=== PATIENT | male | born 1950 | race Caucasian/White ===

== ENCOUNTER → 2017-12-28 | Outpatient (CLI) | payer MEDICARE ==
--- NOTE | 2018-01-02 07:18 | US ---
EXAM DESCRIPTION: Carotid Duplex CLINICAL HISTORY: 67 years, Male, OCCLUSION AND STENOSIS OF BILATERAL CAROTID ARTERIES COMPARISON: [None.] FINDINGS: Indirect estimation of percent stenosis is inferred from velocity parameters and cross referenced to published or self-generated correlations among velocity parameters. Peak systolic velocity right common carotid artery 112 centimeters/second. Peak systolic velocity right internal carotid artery 101 centimeters/second. Right ICA to CCA ratio 0.9. Antegrade flow in the right vertebral artery. Grayscale images show a small amount of plaque in the right carotid bifurcation. Peak systolic velocity left common carotid artery 126 centimeters/second. Peak systolic velocity left internal carotid artery 71 centimeters/second. Left ICA to CCA ratio 0.6. [Antegrade] flow in the left vertebral artery. Grayscale images show a small amount of plaque in the left carotid bifurcation. IMPRESSION: Mild (less than 50%) bilateral carotid artery stenosis. Electronically signed by: Morgan Wick MD 01/02/2018 7:17 AM FINISH CLEANER
== END ==
LOC: US 14:30
PROVIDERS: ATTEND Family Medicine
DX: I65.23 Occlusion and stenosis of bilateral carotid arteries (principal)

== ENCOUNTER 2019-06-13 23:22 | Emergency (ER) | payer MEDICARE ==
[2019-06-13] MEDS ORDERED: KETOROLAC TROMETHAMINE INJ 60 MG/2 ML VIAL IM ONE (23:32)
[2019-06-13] MEDS ORDERED: PROMETHAZINE HCL INJ 25 MG/ML VIAL IM ONE (23:32)
--- NOTE | 2019-06-14 00:03 | RAD ---
EXAM DESCRIPTION: KUB CLINICAL HISTORY: 69 years Male acute left lower abd pain COMPARISON: None TECHNIQUE: Supine view of the abdomen was obtained. FINDINGS: Gas is seen throughout the bowel. Bowel is normal in caliber. Moderate constipation. Faint calcification versus overlying stool in region of inferior right kidney. Pelvic calcifications likely vascular in nature. IMPRESSION: Nonspecific bowel gas pattern. Moderate constipation. No definite bowel obstruction. Electronically signed by: Rachana Hanson MD 06/14/2019 12:00 AM CDT
--- NOTE | 2019-06-14 00:33 | CT ---
CT abdomen and pelvis without contrast on 06/14/2019 CLINICAL INDICATION: Left lower quadrant pain, hematuria TECHNIQUE: Multiple axial images are obtained throughout the abdomen and pelvis without the administration of contrast. This exam was performed according to our departmental dose-optimization program, which includes automated exposure control, adjustment of the mA and/or kV according to patient size and/or use of iterative reconstruction technique. Total DLP is 1407.22 mGy*cm. COMPARISON: 01/05/2013 FINDINGS: Abdomen: Very mild bilateral gynecomastia is noted. Coronary artery calcifications and other vascular calcifications are noted. There is calcified pleural plaque on the left suggesting prior hemothorax or empyema. Lung bases are otherwise clear. There is a nonobstructing stone in the lower pole of the right kidney. There is mild left hydronephrosis and hydroureter to the level of a 4 mm left UVJ stone. There is mild left perinephric and periureteral stranding related to the obstruction. There is a small left adrenal nodule that has Hounsfield unit measurement of -6 which is consistent with an adenoma with no follow-up recommended. The unenhanced solid abdominal organs are otherwise unremarkable. There is no abdominal adenopathy. There is no free fluid or free air within the abdomen. There is diverticulosis. The abdominal portion of the GI tract is otherwise unremarkable. Pelvis: There is diverticulosis. There is no free fluid in the pelvis. The prostate is mildly enlarged, please correlate with physical exam and PSA levels. There is no pelvic adenopathy. The pelvic portion of the GI tract including the appendix is otherwise unremarkable. Degenerative changes are noted in the spine. There is a small right inguinal hernia containing only fat. IMPRESSION: 1. Mild left hydronephrosis and hydroureter to the level of a 4 mm left UVJ stone. 2. Right nephrolithiasis. 3. Diverticulosis. 4. Mild prostate enlargement. Electronically signed by: Juan Adame 06/14/2019 12:31 AM CDT
[2019-06-14] MEDS ORDERED: TAMSULOSIN 0.4 MG CAP PO ONE (00:50)
--- NOTE | 2019-06-14 00:53 | ED.PDOC ---
History of Present Illness - General Chief Complaint: Abdominal Pain Stated Complaint: Severe left sided pain Time Seen by Provider: 06/13/19 23:23 Source: patient Exam Limitations: no limitations - History of Present Illness Initial Comments: the patient is a 69-year-old male presenting to emergency room secondary to acute onset left lower abdominal pain. It was associated with nausea and sweating. No diarrhea. No testicular pain. No urinary symptoms. No previous history of any kidney stones. He was feeling fine prior. Pain is quite severe. It is cramping and stabbing in nature. Timing/Duration: 1-3 hours Severity: severe Improving Factors: nothing Worsening Factors: nothing Associated Symptoms: malaise, nausea/vomiting Allergies/Adverse Reactions: Allergies NO KNOWN ALLERGY Allergy (Verified 06/13/19 23:30) Home Medications: Ambulatory Orders Primidone 250 mg PO BID 06/13/19 Tramadol HCl 50 mg PO Q8HR PRN #10 tab 06/14/19 Review of Systems - Review of Systems Constitutional: States: no symptoms reported EENTM: States: no symptoms reported Respiratory: States: no symptoms reported Cardiology: States: no symptoms reported Gastrointestinal/Abdominal: States: see HPI Genitourinary: States: no symptoms reported Musculoskeletal: States: back pain Skin: States: no symptoms reported Neurological: States: no symptoms reported Endocrine: States: no symptoms reported All other Systems: No Change from Baseline Past Medical History (General) - Patient Medical History Hx Seizures: No Hx Stroke: No Hx Dementia: No Hx Asthma: No Hx of COPD: No Hx Cardiac Disorders: No Hx Congestive Heart Failure: No Hx Pacemaker: No Hx Hypertension: No Hx Thyroid Disease: No Hx Diabetes: No Hx Gastroesophageal Reflux: No Hx Renal Disease: No Hx Cancer: No Hx of HIV: No Hx Hepatitis C: No Hx MRSA: No Surgical History: other - Vaccination History Hx Tetanus, Diphtheria Vaccination: - Unknown Hx Influenza Vaccination: Yes Hx Pneumococcal Vaccination: Yes - Social History Hx Tobacco Use: No Hx Chewing Tobacco Use: No Hx Alcohol Use: Yes - occasional Hx Substance Use: No Hx Substance Use Treatment: No Hx Depression: No Feels Threatened In Home Enviroment: No Feels Threatened In a Relationship: No Hx Physical Abuse: No Hx Emotional Abuse: No Hx Suspected Abuse: No - Activities of Daily Living Hospice Agency (if applicable):: None - Triage Comment ED Triage Comment: Pt states that he began having severe left sided pain that was sudden onset about three hours ago. Pt states that he is now beginning to feel nauseated. Family Medical History - Family History Brother Living Status: Still Living Hx Family Cancer: Yes - melanoma Father Living Status: Hx Cardiac Disease: Yes Physical Exam - Physical Exam General Appearance: Alert, Obvious distress Eye Exam: bilateral normal Ears, Nose, Throat: hearing grossly normal, normal ENT inspection Neck: full range of motion, supple Respiratory: lungs clear, normal breath sounds, no respiratory distress, no accessory muscle use Cardiovascular/Chest: normal peripheral pulses, regular rate, rhythm, no edema Peripheral Pulses: radial,right: 2+, radial,left: 2+, dorsalis pedis,right: 2+, dorsalis pedis,left: 2+ Gastrointestinal/Abdominal: non tender, soft Rectal Exam: deferred Back Exam: no CVA tenderness, no vertebral tenderness Extremity: normal range of motion, non-tender, normal inspection, no pedal edema - , normal capillary refill 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 Based on his symptom resolution and it is likely that he has already passed into the bladder. He should increase his fluid intake over the coming week. He did receive 1 dose of Flomax here. He can take Motrin or Aleve twice daily for the next few days as well to reduce discomfort. ER warnings were given for any acute worsening. Stone was confirmed by CT scan. - Results/Orders Results/Orders: Laboratory Results - last 24 hr 06/13/19 23:49 Urine Color Yellow Urine Appearance Clear Urine pH 5.5 Ur Specific [place] >= 1.030 Urine Protein Negative Urine Glucose (UA) Negative Urine Ketones Negative Urine Blood Small H Urine Nitrite Negative Urine Bilirubin Negative Urine Urobilinogen 0.2 Ur Leukocyte Esterase Negative Urine RBC 3-5 H Urine WBC 1-3 Ur Epithelial Cells 0 Urine Bacteria 0 - EKG/XRAY/CT CT Ordered: No CT Interpretation Call Back: No Departure - Departure Clinical Impression: Ureterolithiasis Disposition: Discharge to Home or Self Care Condition: Fair Departure Forms: ED Discharge - Pt. Copy, Patient Portal Self Enrollment Instructions: Kidney Stones (DC) Diet: regular diet Activity: increase activity as tolerated Referrals: Cody Torres MD [Primary Care Provider] - 1-2 Weeks Prescriptions: Tramadol HCl 50 mg PO Q8HR PRN #10 tab PRN Reason: Moderate Pain Home Medications: Ambulatory Orders Primidone 250 mg PO BID 06/13/19 Tramadol HCl 50 mg PO Q8HR PRN #10 tab 06/14/19 Additional Instructions: the patient's a 69-year-old male presenting to the emergency room secondary to pain from what appears to be due to a 4 mm kidney stone at the left ureterovesicular junction. Based on his symptom resolution and it is likely that he has already passed into the bladder. He should increase his fluid intake over the coming week. He did receive 1 dose of Flomax here. He can take Motrin or Aleve twice daily for the next few days as well to reduce discomfort. ER warnings were given for any acute worsening. Stone was confirmed by CT scan.
[2019-06-14 01:05] VITALS: BP 135/93; TEMP 97.2; O2SAT 95
== END 2019-06-14 01:02 | disposition home or self-care (01) ==
LOC: ER 23:22
DX: N13.2 Hydronephrosis with renal and ureteral calculous obstruction (principal)
CPT/HCPCS: 74018; 74176; 81001; J1885; J2550

== ENCOUNTER → 2019-07-17 | Outpatient (CLI) | payer MEDICARE | LOC: GMAE 10:50 | PROVIDERS: ATTEND Family Medicine | DX: E78.5 Hyperlipidemia, unspecified (principal); Z79.899 Other long term (current) drug therapy; Z12.5 Encounter for screening for malignant neoplasm of prostate | CPT/HCPCS: 84443; G0103 ==

== ENCOUNTER 2020-01-09 09:06 | Emergency (ER) | payer MEDICARE ==
[2020-01-09] MEDS ORDERED: KETOROLAC TROMETHAMINE INJ 30 MG/ML VIAL ONE (09:37)
[2020-01-09] MEDS: SODIUM CHLORIDE 0.9% 1000ML 1,000 ML IVS ONE (09:44)
[2020-01-09] MEDS: ONDANSETRON INJ 4 MG/2 ML VIAL IV ONE (09:44)
[2020-01-09] MEDS: KETOROLAC TROMETHAMINE INJ 30 MG/ML VIAL IV ONE ×2 (09:44→11:27)
--- NOTE | 2020-01-09 09:44 | ED.PDOC ---
History of Present Illness - General Chief Complaint: Abdominal Pain Stated Complaint: R flank discomfort Time Seen by Provider: 01/09/20 09:26 - History of Present Illness Initial Comments: 69 yo M PMH Kidney Stones presents to ED at bedside c/o right sided flank pain that radiates to RLQ of abdomen with nausea that began this morning. Denies fever chills admits nausea denies vomiting diarrhea chest pain sob diaphoresis. Admits decreased appetie and disturbed rest. Also reports dysuria and sensation to urinate but not feeling ability of full urination no change in bowel. Denies smoking admits occasional drinking. Admits FH HTN denies FH DM. Has PMD Dr. Kessler. No other c/o today. Review of Systems - Review of Systems Constitutional: States: see HPI EENTM: States: see HPI Respiratory: States: see HPI Cardiology: States: see HPI Gastrointestinal/Abdominal: States: see HPI Genitourinary: States: see HPI Musculoskeletal: States: see HPI Skin: States: see HPI Neurological: States: see HPI Endocrine: States: see HPI Hematologic/Lymphatic: States: see HPI All other Systems: Reviewed and Negative Past Medical History (General) - Patient Medical History Hx Seizures: No Hx Stroke: No Hx Dementia: No Hx Asthma: No Hx of COPD: No Hx Cardiac Disorders: No Hx Congestive Heart Failure: No Hx Pacemaker: No Hx Hypertension: No Hx Thyroid Disease: No Hx Diabetes: No Hx Gastroesophageal Reflux: No Hx Renal Disease: No Hx Cancer: No Hx of HIV: No Hx Hepatitis C: No Hx MRSA: No - Vaccination History Hx Tetanus, Diphtheria Vaccination: - Unknown Hx Influenza Vaccination: Yes - 2019 Hx Pneumococcal Vaccination: Yes - Social History Hx Tobacco Use: No Hx Chewing Tobacco Use: No Hx Alcohol Use: Yes - Occasional Hx Substance Use: No Hx Substance Use Treatment: No Hx Depression: No Hx Physical Abuse: No Hx Emotional Abuse: No Hx Suspected Abuse: No Family Medical History - Family History Brother Living Status: Still Living Hx Family Cancer: Yes - melanoma Father Living Status: Hx Cardiac Disease: Yes Physical Exam - Physical Exam General Appearance: Obvious distress Eyes, Ears, Nose, Throat Exam: normal ENT inspection Neck: non-tender, full range of motion Respiratory: normal breath sounds, no respiratory distress Cardiovascular/Chest: regular rate, rhythm Gastrointestinal/Abdominal: soft, tenderness - Tender RLQ also right CVA tenderness Pelvic Exam: other - n/a Male Genitalia: other - Deferred Rectal Exam: deferred Back Exam: CVA tenderness (R) Extremity: normal range of motion, non-tender Neurologic: no motor/sensory deficits Skin Exam: normal color Progress - Progress Progress: 01/09/20 09:47 A/P-Abdominal Pain, Flank Pain, Dysuria-iv bolus toradol zofran cbc cmp lipase trop ekg cxr ct abdomen pelvis reassess 01/09/20 10:57 Laboratory Tests 01/09/20 01/09/20 01/09/20 09:30 09:30 09:30 WBC 10.5 RBC 5.15 Hgb 15.8 Hct 46.8 MCV 90.8 MCH 30.7 MCHC 33.8 RDW 13.5 Plt Count 267 MPV 8.0 Absolute Neuts (auto) 7.50 H Absolute Lymphs (auto) 1.70 Absolute Monos (auto) 0.90 H Absolute Eos (auto) 0.40 Absolute Basos (auto) 0.10 Neutrophils % 71.0 Lymphocytes % 16.5 L Monocytes % 8.1 Eosinophils % 3.4 Basophils % 1.0 Sodium 138 Potassium 4.1 Chloride 103 Carbon Dioxide 27 Anion Gap 12.1 BUN 15 Creatinine 0.93 BUN/Creatinine Ratio 16.1 Random Glucose 141 H Serum Osmolality 278.9 Calcium 10.1 Total Bilirubin 0.7 AST 29 ALT 30 Alkaline Phosphatase 65 Troponin I < 0.02 Serum Total Protein 7.4 Albumin 4.1 Globulin 3.3 Albumin/Globulin Ratio 1.2 Lipase 49 Urine Color Urine Appearance Urine pH Ur Specific [place] Urine Protein Urine Glucose (UA) Urine Ketones Urine Blood Urine Nitrite Urine Bilirubin Urine Urobilinogen Ur Leukocyte Esterase Urine RBC Urine WBC Ur Epithelial Cells Amorphous Sediment Urine Bacteria Urine Mucus 01/09/20 10:35 WBC RBC Hgb Hct MCV MCH MCHC RDW Plt Count MPV Absolute Neuts (auto) Absolute Lymphs (auto) Absolute Monos (auto) Absolute Eos (auto) Absolute Basos (auto) Neutrophils % Lymphocytes % Monocytes % Eosinophils % Basophils % Sodium Potassium Chloride Carbon Dioxide Anion Gap BUN Creatinine BUN/Creatinine Ratio Random Glucose Serum Osmolality Calcium Total Bilirubin AST ALT Alkaline Phosphatase Troponin I Serum Total Protein Albumin Globulin Albumin/Globulin Ratio Lipase Urine Color Brenda Urine Appearance Clear Urine pH 5.5 Ur Specific [place] >= 1.030 Urine Protein Negative Urine Glucose (UA) Negative Urine Ketones Trace Urine Blood Negative Urine Nitrite Negative Urine Bilirubin Negative Urine Urobilinogen 0.2 Ur Leukocyte Esterase Negative Urine RBC 1-3 Urine WBC 0-1 Ur Epithelial Cells 0-1 Amorphous Sediment 2+ Urine Bacteria Rare Urine Mucus Moderate EXAM DESCRIPTION: Chest,1 View CLINICAL HISTORY: 69 years Male, abdominal pain COMPARISON: None available. TECHNIQUE: AP radiograph of the chest was obtained. FINDINGS: Trachea is midline.The cardiomediastinal silhouette is enlarged in size. Bilateral pulmonary vascular congestion. Airspace opacities in the bilateral lower lobes could represent atelectasis.No evidence of pleural effusions. IMPRESSION: Mildly enlarged cardio silhouette with pulmonary vascular congestion. Airspace opacities in the bilateral lower lobes could represent atelectasis. Electronically signed by: Annette Riggins MD 01/09/2020 10:40 AM SOCIAL WORK INSTRUCTOR EXAM DESCRIPTION: Abdoment/Pelvis w/o Contrast CLINICAL HISTORY: 69 years Male, R Flank pain h/o kidney stone RLQ pain COMPARISON: CT abdomen and pelvis 01/17/2013. TECHNIQUE: CT of the abdomen and pelvis acquired with IV contrast material. Coronal and sagittal reformations provided. This exam was performed according to our departmental dose-optimization program, which includes automated exposure control, adjustment of the mA and/or kV according to patient size and/or use of iterative reconstruction technique. FINDINGS: Lung bases: Stable pleural calcifications along the posterior aspect of the left lower lobe. Limited evaluation of the solid organs secondary to the lack of intravenous contrast. Solid Organs: 3 mm hypodensity in the right hepatic lobe. Unremarkable spleen, pancreas, gallbladder, right adrenal gland. Stable left adrenal adenoma with average Hounsfield -5 measuring up to 1.8 cm. Left kidney unremarkable without renal or ureteral stone hydronephroureter. 4 mm stone in the right ureterovesicular junction with associated mild right hydronephroureter. Mild perinephric stranding on the right. GI tract: Unremarkable stomach. No small bowel obstruction. Sigmoid diverticula without pericolonic inflammation. Normal appendix. Vascular: Mild atherosclerosis. Musculoskeletal and soft tissues: No acute fracture or aggressive appearing osseous lesion. Small right greater than left fat-containing inguinal hernias. Urinary bladder: Normal. Prostate: Prostate measures up to 4.6 cm in maximal transverse dimension. Other: None. IMPRESSION: 1. 4 mm stone right UVJ with mild right hydronephroureter. Perinephric stranding on the right likely relates to obstructive uropathy although infection such as pyelonephritis cannot be excluded on this noncontrast study. 2. Stable adrenal adenoma. 3. Sigmoid diverticulosis. Electronically signed by: Lloyd Rangel MD 01/09/2020 10:48 AM SOCIAL WORK INSTRUCTOR Pt. has Kidney Stone will give rocephin and discharge tylenol ibuprofen augmentin - Results/Orders Results/Orders: EKG-non specific TW changes No STEMI Sinus Bradycardia 55bpm Departure - Departure Clinical Impression: Kidney stones, Flank pain, Dysuria Abdominal pain Qualifiers: Abdominal location: generalized Qualified Code(s): R10.84 - Generalized abdominal pain Time of Disposition: 11:15 Disposition: Discharge to Home or Self Care Condition: Good Departure Forms: ED Discharge - Pt. Copy, Patient Portal Self Enrollment Instructions: DI for Abdominal Pain-Adult Referrals: CHRISTIAN KESSLER MD [Primary Care Provider] - 1-2 Days Prescriptions: Acetaminophen [Tylenol] 650 mg PO Q6H PRN #30 tab PRN Reason: Pain Amoxicillin & Pot Clavulanate [Augmentin Tab] 875 mg PO BID 10 Days #20 tab Ibuprofen 600 mg PO Q6H PRN #20 tab PRN Reason: Pain Ondansetron Tab [Zofran Tab] 4 mg PO TID PRN 5 Days #15 tab PRN Reason: Nausea Tamsulosin HCl [Flomax] 0.4 mg PO DAILY #15 cap Home Medications: Ambulatory Orders Primidone 250 mg PO BID 06/13/19 Acetaminophen [Tylenol] 650 mg PO Q6H PRN #30 tab 01/09/20 Amoxicillin & Pot Clavulanate [Augmentin Tab] 875 mg PO BID 10 Days #20 tab 01/09/20 Ibuprofen 600 mg PO Q6H PRN #20 tab 01/09/20 Ondansetron Tab [Zofran Tab] 4 mg PO TID PRN 5 Days #15 tab 01/09/20 Tamsulosin HCl [Flomax] 0.4 mg PO DAILY #15 cap 01/09/20
--- NOTE | 2020-01-09 10:42 | RAD ---
EXAM DESCRIPTION: Chest,1 View CLINICAL HISTORY: 69 years Male, abdominal pain COMPARISON: None available. TECHNIQUE: AP radiograph of the chest was obtained. FINDINGS: Trachea is midline.The cardiomediastinal silhouette is enlarged in size. Bilateral pulmonary vascular congestion. Airspace opacities in the bilateral lower lobes could represent atelectasis.No evidence of pleural effusions. IMPRESSION: Mildly enlarged cardio silhouette with pulmonary vascular congestion. Airspace opacities in the bilateral lower lobes could represent atelectasis. Electronically signed by: Annette Riggins MD 01/09/2020 10:40 AM [facility]
--- NOTE | 2020-01-09 10:49 | CT ---
EXAM DESCRIPTION: Abdoment/Pelvis w/o Contrast CLINICAL HISTORY: 69 years Male, R Flank pain h/o kidney stone RLQ pain COMPARISON: CT abdomen and pelvis 01/17/2013. TECHNIQUE: CT of the abdomen and pelvis acquired with IV contrast material. Coronal and sagittal reformations provided. This exam was performed according to our departmental dose-optimization program, which includes automated exposure control, adjustment of the mA and/or kV according to patient size and/or use of iterative reconstruction technique. FINDINGS: Lung bases: Stable pleural calcifications along the posterior aspect of the left lower lobe. Limited evaluation of the solid organs secondary to the lack of intravenous contrast. Solid Organs: 3 mm hypodensity in the right hepatic lobe. Unremarkable spleen, pancreas, gallbladder, right adrenal gland. Stable left adrenal adenoma with average Hounsfield -5 measuring up to 1.8 cm. Left kidney unremarkable without renal or ureteral stone hydronephroureter. 4 mm stone in the right ureterovesicular junction with associated mild right hydronephroureter. Mild perinephric stranding on the right. GI tract: Unremarkable stomach. No small bowel obstruction. Sigmoid diverticula without pericolonic inflammation. Normal appendix. Vascular: Mild atherosclerosis. Musculoskeletal and soft tissues: No acute fracture or aggressive appearing osseous lesion. Small right greater than left fat-containing inguinal hernias. Urinary bladder: Normal. Prostate: Prostate measures up to 4.6 cm in maximal transverse dimension. Other: None. IMPRESSION: 1. 4 mm stone right UVJ with mild right hydronephroureter. Perinephric stranding on the right likely relates to obstructive uropathy although infection such as pyelonephritis cannot be excluded on this noncontrast study. 2. Stable adrenal adenoma. 3. Sigmoid diverticulosis. Electronically signed by: Lloyd Rangel MD 01/09/2020 10:48 AM VIDEO EFFECTS EDITOR
[2020-01-09] MEDS ORDERED: MORPHINE SULFATE INJ 10 MG/ML VIAL IV ONE (11:04)
[2020-01-09] MEDS ORDERED: cefTRIAXone SODIUM 1 GM VIAL ONE (11:19)
[2020-01-09] MEDS ORDERED: SODIUM CHL 0.9% 50ML MIN-BAG+ 50 ML IVPB ONE (11:20)
[2020-01-09] MEDS: TAMSULOSIN 0.4 MG CAP PO ONE (11:26)
[2020-01-09] MEDS: cefTRIAXone SODIUM 1 GM in SODIUM CHL 0.9% 50ML MIN-BAG+ 50 ML IVPB ONE (11:29)
[2020-01-09 11:31] VITALS: BP 151/88
[2020-01-09 12:00] VITALS: TEMP 97.7; O2SAT 97
== END 2020-01-09 11:59 | disposition home or self-care (01) ==
LOC: ER 09:06
DX: N13.2 Hydronephrosis with renal and ureteral calculous obstruction (principal)
CPT/HCPCS: 36415; 71045; 74176; 80053; 81001; 83690; 84484; 85025; 93005; J0696; J1885; J2270; J2405; J7030; J7050

== ENCOUNTER 2020-04-15 15:13 | Emergency (ER) | payer MEDICARE ==
[2020-04-15] MEDS ORDERED: LIDOCAINE 1% 10 ML VIAL INJ ONE (15:19)
[2020-04-15] MEDS ORDERED: TETANUS,DIPHTHERIA,PERTUSSIS 1 EA SYG IM ONE (15:19)
--- NOTE | 2020-04-15 15:22 | ED.PDOC ---
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 States he was wearing gloves and bulding a fence. He was driving a T post and skin of left thumb got piched between the metal. States he can move it without pain and denies other injuries. last tetanus is unknown. Allergies/Adverse Reactions: Allergies NO KNOWN ALLERGY Allergy (Verified 06/13/19 23:30) Home Medications: Ambulatory Orders Primidone 250 mg PO BID 06/13/19 Tamsulosin HCl [Flomax] 0.4 mg PO DAILY #15 cap 01/09/20 Cephalexin Monohydrate [Keflex] 500 mg PO QID 7 Days #28 cap 04/15/20 Review of Systems - Review of Systems Constitutional: Denies: chills, fever EENTM: Denies: ear pain, throat pain Respiratory: Denies: cough, short of breath Cardiology: Denies: chest pain, palpitations, syncope Gastrointestinal/Abdominal: Denies: abdominal pain, nausea, vomiting Musculoskeletal: Denies: back pain, neck pain Skin: States: other - as per HPI All other Systems: Reviewed and Negative Past Medical History (General) - Patient Medical History Hx Seizures: No Hx Stroke: No Hx Dementia: No Hx Asthma: No Hx of COPD: No Hx Cardiac Disorders: No Hx Congestive Heart Failure: No Hx Pacemaker: No Hx Hypertension: No Hx Thyroid Disease: No Hx Diabetes: No Hx Gastroesophageal Reflux: No Hx Renal Disease: No Hx Cancer: No Hx of HIV: No Hx Hepatitis C: No Hx MRSA: No - Vaccination History Hx Tetanus, Diphtheria Vaccination: - Unknown Hx Influenza Vaccination: Yes - 2019 Hx Pneumococcal Vaccination: Yes - Social History Hx Tobacco Use: No Hx Chewing Tobacco Use: No Hx Alcohol Use: Yes - Occasional Hx Substance Use: No Hx Substance Use Treatment: No Hx Depression: No Hx Physical Abuse: No Hx Emotional Abuse: No Hx Suspected Abuse: No Family Medical History - Family History Brother Living Status: Still Living Hx Family Cancer: Yes - melanoma Father Living Status: Hx Cardiac Disease: Yes Physical Exam - Physical Exam General Appearance: Alert, Comfortable, No apparent distress Neck: full range of motion, supple Cardiovascular/Respiratory: regular rate, rhythm, normal breath sounds, no respiratory distress Mental Status: alert Comments: There is a 2 cm semicircular laceration to dorsal left thumb between the MCP and IP joints. No active bleeding. Has 5/5 flexion and extension strength. No nail injury. Procedures - Laceration/Wound Repair Left Dorsal Finger Wound Length (cm): 2 - left thumb Wound's Depth, Shape: superficial Wound Explored: clean Irrigated w/ Saline (cc's): 250 Anesthesia: 1% Lidocaine Volume Anesthetic (cc's): 4 - local infiltration Wound Repaired With: sutures Suture Size/Type: 4:0, prolene Number of Sutures: 3 Layer Closure?: No Sterile Dressing Applied?: Yes Progress: Tolerated well, no complications Departure - Departure Clinical Impression: Laceration of thumb Qualifiers: Encounter type: initial encounter Damage to nail status: without damage Foreign body presence: without foreign body Laterality: left Qualified Code(s): S61.012A - Laceration without foreign body of left thumb without damage to nail, initial encounter Time of Disposition: 15:48 Disposition: Discharge to Home or Self Care Condition: Good Instructions: DI for Laceration Repair Diet: resume usual diet Activity: increase activity as tolerated Referrals: CHRISTIAN DEL TORO MD [Primary Care Provider] - 1-2 Weeks Prescriptions: Cephalexin Monohydrate [Keflex] 500 mg PO QID 7 Days #28 cap Home Medications: Ambulatory Orders Primidone 250 mg PO BID 06/13/19 Tamsulosin HCl [Flomax] 0.4 mg PO DAILY #15 cap 01/09/20 Cephalexin Monohydrate [Keflex] 500 mg PO QID 7 Days #28 cap 04/15/20 Additional Instructions: Keep wound clean and dry. Return for suture removal in 10-12 days.
[2020-04-15 15:39] VITALS: BP 142/95; TEMP 97.6; O2SAT 95
== END 2020-04-15 15:55 | disposition home or self-care (01) ==
LOC: ER 15:13
DX: S61.012A Laceration without foreign body of left thumb without damage to nail, initial encounter (principal); W27.8XXA Contact with other nonpowered hand tool, initial encounter; Y92.9 Unspecified place or not applicable

== ENCOUNTER 2020-09-23 21:47 | Inpatient (IN) | payer MEDICARE ==
[2020-09-23] MEDS ORDERED: IPRATROPIUM/ALBUTEROL 3 ML VIAL NEB ONE ×2 (22:07→22:17)
--- NOTE | 2020-09-23 22:35 | RAD ---
EXAM DESCRIPTION: Chest,1 View 09/23/2020 10:32 PM CDT CLINICAL HISTORY: 70 years, Male, sob, hypoxia COMPARISON: 01/09/2020. FINDINGS: Single view of the chest was obtained portable. Prior films were compared. There has been improved aeration of the lung bases. Minimal linear densities within the lung bases correspond to atelectasis and/or less likely infiltrate. The cardiomediastinal silhouette demonstrate to be unremarkable. The heart is not enlarged. The thoracic aorta is mildly tortuous. There is no evidence for pneumothorax. No significant pleural effusions and/or consolidations. The rest of the soft tissue and bony structures demonstrate to be unremarkable. IMPRESSION: IMPROVED AERATION OF THE LUNG BASES. MINIMAL LINEAR DENSITY LUNG BASES CORRESPOND TO ATELECTASIS VERSUS LESS LIKELY INFILTRATES. OVERALL IMPROVED IN COMPARISON WITH PRIOR STUDY. Electronically signed by: Junito Jain MD 09/23/2020 10:34 PM CDT
[2020-09-23] MEDS ORDERED: cefTRIAXone SODIUM 1 GM in SODIUM CHL 0.9% 50ML MIN-BAG+ 50 ML IVPB ONE (22:38)
[2020-09-23] MEDS ORDERED: ACETAMINOPHEN 325 MG TAB PO ONE (22:39)
[2020-09-23] MEDS ORDERED: SODIUM CHLORIDE 0.9% (FLUSH) 10 ML SYG ONE (22:48)
[2020-09-24] MEDS ORDERED: predniSONE 20 MG TAB PO ONE (00:05)
--- NOTE | 2020-09-24 00:29 | ED.PDOC ---
History of Present Illness - General Chief Complaint: Respiratory Problem Stated Complaint: increased shortness of breath Time Seen by Provider: 09/23/20 21:58 Source: patient Exam Limitations: no limitations - History of Present Illness Initial Comments: The patient is a 70-year-old male presented emergency room secondary to progressive shortness of breath. The patient started having shortness of breath with excessive phlegm production and rhinorrhea this morning when he woke up. He went saw his primary care doctor who tested for coronavirus of the rapid test, which tested negative. He was started on prednisolone and azithromycin by his primary care doctor. Symptoms continue to progress and the patient became febrile so he should appear to the emergency room. Is moderately short of breath upon arrival. Symptoms did improve significantly after breathing treatment. The patient denies any real significant pulmonary history in the past. No history of pneumonias, COPD or asthma in the past. He does have a mild sore throat. Again he does have a runny nose. No real body aches. No headache. No chest pain. No nausea vomiting or diarrhea. Timing/Duration: other - About 16 hours Severity: moderate Improving Factors: medication Worsening Factors: nothing Associated Symptoms: cough, malaise, shortness of breath Allergies/Adverse Reactions: Allergies NO KNOWN ALLERGY Allergy (Verified 06/13/19 23:30) Home Medications: Ambulatory Orders Primidone 250 mg PO BID 06/13/19 Azithromycin 250 mg PO DAILY 09/23/20 Methylprednisolone 4 mg PO DAILY 09/23/20 Primidone 250 mg PO DAILY 09/23/20 Promethazine/Codeine 09/23/20 Propranolol HCl [Propranolol Hydrochloride] 10 mg PO DAILY 09/23/20 Review of Systems - Review of Systems Constitutional: States: fever, malaise EENTM: States: nose congestion, throat pain - Mild Respiratory: States: cough, short of breath Cardiology: States: no symptoms reported Gastrointestinal/Abdominal: States: no symptoms reported Genitourinary: States: no symptoms reported Musculoskeletal: States: no symptoms reported Skin: States: no symptoms reported Neurological: States: no symptoms reported Endocrine: States: no symptoms reported All other Systems: No Change from Baseline Past Medical History (General) - Patient Medical History Hx Seizures: No Hx Stroke: No Hx Dementia: No Hx Asthma: No Hx of COPD: No Hx Cardiac Disorders: No Hx Congestive Heart Failure: No Hx Pacemaker: No Hx Hypertension: No Hx Thyroid Disease: No Hx Diabetes: No Hx Gastroesophageal Reflux: No Hx Renal Disease: No Hx Cancer: No Hx of HIV: No Hx Hepatitis C: No Hx MRSA: No - Vaccination History Hx Tetanus, Diphtheria Vaccination: Yes Hx Influenza Vaccination: Yes Hx Pneumococcal Vaccination: No - Social History Hx Tobacco Use: No Hx Chewing Tobacco Use: No Hx Alcohol Use: Yes - occ Hx Substance Use: No Hx Substance Use Treatment: No Hx Depression: No Hx Physical Abuse: No Hx Emotional Abuse: No Hx Suspected Abuse: No Family Medical History - Family History Brother Living Status: Still Living Hx Family Cancer: Yes - melanoma Father Living Status: Hx Cardiac Disease: Yes Physical Exam - Physical Exam General Appearance: Alert, Other - Obviously uncomfortable. Coarse breath sounds are heard from across the room. Eye Exam: bilateral normal Ears, Nose, Throat: hearing grossly normal, nasal congestion, pharyngeal e rythema - Mild Neck: full range of motion, supple - Mild Respiratory: accessory muscle use, rhonchi Cardiovascular/Chest: normal peripheral pulses, regular rate, rhythm, no edema Peripheral Pulses: radial,right: 2+, radial,left: 2+ Gastrointestinal/Abdominal: non tender, soft Rectal Exam: deferred Back Exam: no vertebral tenderness Extremity: normal range of motion, no pedal edema, normal capillary refill Neurologic: assistant surveyor II-XII nml as tested, alert, normal mood/affect, oriented x 3 Skin Exam: normal color Comments: Vital Signs - 24 hr 09/23/20 09/23/20 22:09 23:20 Temperature 100.9 F H Pulse Rate [ 99 H 87 left] Respiratory 24 20 Rate Blood Pressure 192/96 170/83 [Left Arm] O2 Sat by Pulse 88 L 94 L Oximetry Progress - Progress Progress: 09/24/20 00:30 The patient is a 70-year-old male presented to emergency room secondary to progressive shortness of breath. The patient appears to have an acute bronchitis with associated hypoxia most likely due to rhinovirus. He has been covered with Rocephin and azithromycin. Oral steroids are being given to reduce inflammation in the airways. The patient did respond positively to a DuoNeb treatment so this may need to be repeated periodically. The patient also received supplemental oxygen which helped symptomatically. A couple of liters of oxygen has corrected from the upper 80s to the low 90s on pulse oximetry. Admit for continued care overnight. He did test negative for coronavirus here. [phone] - Results/Orders Results/Orders: Chest x-ray shows slight atelectasis. No definitive new pulmonary infiltrates. Respiratory panel 2 is positive for rhinovirus Laboratory Tests 09/23/20 09/23/20 09/23/20 22:10 22:10 22:10 WBC 12.6 H RBC 4.77 Hgb 14.8 Hct 42.9 MCV 89.8 MCH 31.1 H MCHC 34.6 RDW 13.5 Plt Count 271 MPV 7.6 Absolute Neuts (auto) 10.20 H Absolute Lymphs (auto) 1.30 Absolute Monos (auto) 0.70 Absolute Eos (auto) 0.40 Absolute Basos (auto) 0.10 Neutrophils % 80.4 H Lymphocytes % 10.0 L Monocytes % 5.7 Eosinophils % 2.9 Basophils % 1.0 Fibrinogen D-Dimer, Quantitative 387.0 Sodium 134 L Potassium 3.9 Chloride 97 L Carbon Dioxide 26 Anion Gap 14.9 BUN 8 Creatinine 0.73 BUN/Creatinine Ratio 11.0 Random Glucose 120 H Serum Osmolality 267.8 L Calcium 9.6 Magnesium 1.8 Total Bilirubin 0.7 AST 23 ALT 25 Alkaline Phosphatase 83 LD Total Creatine Kinase 100 CK-MB (CK-2) 2.3 CK-MB (CK-2) % Not Reportable Troponin I 0.02 C-Reactive Protein B-Natriuretic Peptide 123.0 H Serum Total Protein 7.5 Albumin 4.0 Globulin 3.5 Albumin/Globulin Ratio 1.1 09/23/20 09/23/20 22:10 22:10 WBC RBC Hgb Hct MCV MCH MCHC RDW Plt Count MPV Absolute Neuts (auto) Absolute Lymphs (auto) Absolute Monos (auto) Absolute Eos (auto) Absolute Basos (auto) Neutrophils % Lymphocytes % Monocytes % Eosinophils % Basophils % Fibrinogen 479 H D-Dimer, Quantitative Sodium Potassium Chloride Carbon Dioxide Anion Gap BUN Creatinine BUN/Creatinine Ratio Random Glucose Serum Osmolality Calcium Magnesium Total Bilirubin AST ALT Alkaline Phosphatase LD Total 126 Creatine Kinase CK-MB (CK-2) CK-MB (CK-2) % Troponin I C-Reactive Protein 8.4 H* B-Natriuretic Peptide Serum Total Protein Albumin Globulin Albumin/Globulin Ratio Departure - Departure Clinical Impression: Hypoxia Acute bronchitis Qualifiers: Bronchitis organism: rhinovirus Qualified Code(s): J20.6 - Acute bronchitis due to rhinovirus Disposition: Admit Patient Condition: Poor Departure Forms: ED Discharge - Pt. Copy, Patient Portal Self Enrollment Referrals: CHRISTIAN DEL TORO MD [Primary Care Provider] - 1-2 Weeks Home Medications: Ambulatory Orders Primidone 250 mg PO BID 06/13/19 Azithromycin 250 mg PO DAILY 09/23/20 Methylprednisolone 4 mg PO DAILY 09/23/20 Primidone 250 mg PO DAILY 09/23/20 Promethazine/Codeine 09/23/20 Propranolol HCl [Propranolol Hydrochloride] 10 mg PO DAILY 09/23/20 Decision To Admit - Decistion To Admit Decision to Admit Reason: Medical Nature Decision to Admit Date: 09/24/20 Decision to Admit Time: 00:31
[2020-09-24] MEDS ORDERED: ACETAMINOPHEN 325 MG TAB PO PRN (03:01)
[2020-09-24] MEDS ORDERED: SODIUM CHLORIDE 0.9% (FLUSH) 10 ML SYG IV PRN (03:01)
[2020-09-24] MEDS ORDERED: IPRATROPIUM/ALBUTEROL 3 ML VIAL INH PRN (03:01)
[2020-09-24] MEDS ORDERED: ONDANSETRON INJ 4 MG/2 ML VIAL IV PRN (03:01)
[2020-09-24] MEDS ORDERED: IV SET AND CAP CHANGE INJ INJ SCH (03:30)
[2020-09-24] MEDS ORDERED: SODIUM CHLORIDE 0.9% 250ML 250 ML ONE (04:20)
[2020-09-24] MEDS ORDERED: AZITHROMYCIN IV 500 MG VIAL IVPB ONE (04:20)
[2020-09-24] MEDS: PANTOPRAZOLE SODIUM IV 40 MG VIAL IV SCH (05:33)
[2020-09-24] MEDS: AZITHROMYCIN IV 500 MG in SODIUM CHLORIDE 0.9% 250ML 250 ML IVPB SCH (05:33)
[2020-09-24] MEDS ORDERED: methylPREDNISolone SODIUM SUC 125 MG/2 ML VIAL IV SCH (06:00)
[2020-09-24] MEDS: IPRATROPIUM/ALBUTEROL 3 ML VIAL INH SCH ×4 (07:22→20:20)
[2020-09-24] MEDS: PROPRANOLOL HCL 20 MG TAB PO SCH (08:55)
[2020-09-24] MEDS ORDERED: SODIUM CHLORIDE 0.9% (FLUSH) 10 ML SYG IV SCH (09:00)
[2020-09-24] MEDS ORDERED: PROPRANOLOL HCL 10 MG PO SCH (09:00)
[2020-09-24] MEDS ORDERED: PRIMIDONE 250 MG PO SCH ×2 (09:00)
[2020-09-24] MEDS: cefTRIAXone SODIUM 1 GM in SODIUM CHL 0.9% 50ML MIN-BAG+ 50 ML IVPB SCH (09:00)
[2020-09-24] MEDS: PRIMIDONE 50 MG TAB PO SCH (09:01)
[2020-09-24] MEDS ORDERED: methylPREDNISolone SODIUM SUC 40 MG/ML VIAL ONE (11:30)
[2020-09-24] MEDS: methylPREDNISolone SODIUM SUC 40 MG/ML VIAL IV SCH ×3 (11:37→23:42)
--- NOTE | 2020-09-24 11:45 | HP ---
SUPERVISING PHYSICIAN: Cali Kessler MD CHIEF COMPLAINT: Increasing shortness of breath. HISTORY OF PRESENT ILLNESS: Mr. Lara is a 70 year-old male patient with a past medical history of essential tremors. He reports secondary to having some progressive shortness of breath with a productive cough and some rhinorrhea. He woke up with this last night. He was tested for coronavirus, both rapid test and Biofire panel, some negative but positive for rhinovirus. He also noted he had been having some fever and chills. Vital signs in the Emergency Room showed oxygen saturation 88% on room air when he first got to the Emergency Room with respirations of 20, temperature 100.9, blood pressure 192/96. He was given a dose of Solu-Medrol, albuterol treatments, Rocephin, azithromycin and now is going to be admitted for acute bronchitis with concerns for developing pneumonia. His initial chest x-ray showed some mild infiltrates bilaterally. He was admitted in stable condition. PAST MEDICAL HISTORY: 1. Essential tremors. PAST SURGICAL HISTORY: 1. Parathyroidectomy in 2013. 2. Back surgery in 2013. CURRENT MEDICATIONS: Awaiting updated list of medications. ALLERGIES: NO KNOWN DRUG ALLERGIES. FAMILY HISTORY: Father at age 64 from heart attack, mother did pass away from advanced age. One brother is 48 and has had a heart attack. 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 He is , he lives in [place]. He does not drink, he has never smoked. He does not use illicit drugs. REVIEW OF SYSTEMS: GENERAL: Positive for general malaise and fever. HEENT: Positive for sore throat, nasal congestion, cough. No reported headaches, vision changes, earaches. CHEST: Positive for cough and shortness of breath as noted in history of present illness. HEART: Denies chest pain, palpitations, syncopal episodes. ABDOMEN: Denies nausea or vomiting, diarrhea or constipation or abdominal pain. GENITOURINARY: Denies dysuria, hematuria, polyuria. MUSCULOSKELETAL: Denies arthralgias, joint swelling. SKIN: Denies lesions, rashes, moles or unexplained changes. NEUROLOGIC: Denies vision changes, headaches, syncopal episodes, ataxia, seizures. HEMATOLOGIC: Denies any unexplained bleeding, bruising or transfusion reactions. PHYSICAL EXAMINATION: VITAL SIGNS: In the Emergency Room showed he was febrile at 100.9 with temperature 99, blood pressure initially 192/96, respirations 24, oxygen saturation 88% on room air. After breathing treatments his oxygen saturation was 94% on 3 liter nasal cannula. Blood pressure was down to 157/82, respirations 18. GENERAL: The patient looks to be comfortable at time of my exam. He does not show to be in any acute distress. He was reported as having some coarse breath sounds initially in the Emergency Room. HEENT: Tympanic membranes clear bilaterally. Oropharynx pink and moist with mild erythema noted in the pharyngeal area. NECK: Supple, non-tender, full range of motion, no jugular venous distention. CHEST: Lung sounds have some mild rhonchi heart throughout, no obvious respiratory distress. CARDIOVASCULAR: Regular rate and rhythm without appreciable murmurs, rubs, or gallops. ABDOMEN: Soft, non-tender, positive bowel sounds. EXTREMITIES: Without cyanosis, clubbing, or edema. NEUROLOGIC: He is alert and oriented x3. LABORATORY: White count showed a leukocytosis of 12,600 with a left shift. Hemoglobin 14.8, hematocrit 42.9. Coagulation studies showed normal D-dimer, fibrinogen elevated at 479. Chemistries showed sodium 134, otherwise electrolytes within normal limits as well as liver function. C-reactive protein elevated at 8.4, Urinalysis was unremarkable. MICROBIOLOGY: Sputum culture was pending, blood cultures pending, respiratory panel was negative for Covid and influenza but positive for human rhino enterovirus and negative for all other viral and bacterial targets tested. RADIOLOGY: Chest x-ray showed some atelectasis, no actual pulmonary infiltrates. ASSESSMENT: 1. Acute bronchitis with possibly developing community acquired pneumonia secondary to rhinovirus with patient showing hypoxia on admission. 2. Community acquired pneumonia secondary to #1. 3. Essential tremors. PLAN: The patient is going to be admitted to the hospital for treatment of viral pneumonia. He did test negative for Covid-19. He will be continued on antibiotics with azithromycin and Rocephin and Lovenox. Given that he was having good wheezing, will start him on Solu-Medrol 40 m g every 6 hours. He will be on Protonix for PPI for gastric protection. Will resume his home medications as soon as they are verified. He will be on aggressive pulmonary hygiene with Duoneb treatments and albuterol p.r.n. Sent culture off for sputum, will await that, target antibiotic therapy as appropriate. Until we can transition him to outpatient management, we will continue to monitor and treat as needed. #[id number] [facility]
[2020-09-24] MEDS ORDERED: ENOXAPARIN SODIUM 40 MG/0.4 ML SYG SUBCU SCH (21:00)
[2020-09-25] MEDS: methylPREDNISolone SODIUM SUC 40 MG/ML VIAL IV SCH ×2 (05:29→13:41)
[2020-09-25] MEDS: PANTOPRAZOLE SODIUM IV 40 MG VIAL IV SCH (05:30)
[2020-09-25] MEDS: AZITHROMYCIN IV 500 MG in SODIUM CHLORIDE 0.9% 250ML 250 ML IVPB SCH (05:30)
--- NOTE | 2020-09-25 07:28 | RAD ---
EXAM DESCRIPTION: Chest,1 View CLINICAL HISTORY: 70 years Male, URI, acute bronchitis COMPARISON: September 23, 2020 TECHNIQUE: AP portable chest. FINDINGS: Single view of the chest shows essentially stable appearance with tortuous aortic arch and descending aorta and upper normal cardiac silhouette and upper normal vascularity. Tiny amount of blunting in each lateral lung base suggests minimal pleural fluid. Right lung is essentially clear. Coarse markings at the left lung base suggests minimal residual infiltrate but without progression or dense consolidation. How much of these changes represent compensated or borderline vascular congestion and how much represents minimal interstitial infiltrate is difficult to assess. Small pleural effusions or atypical for a Covid or viral pneumonitis. IMPRESSION: Essentially stable chest with upper normal heart and upper normal vascularity and bronchovascular markings. Questionable minimal residual stranding at the left lung base and likely small bilateral pleural effusions. Electronically signed by: Nadeem Powell MD 09/25/2020 7:27 AM CDT
[2020-09-25] MEDS: PROPRANOLOL HCL 20 MG TAB PO SCH (08:41)
[2020-09-25] MEDS: cefTRIAXone SODIUM 1 GM in SODIUM CHL 0.9% 50ML MIN-BAG+ 50 ML IVPB SCH (08:41)
[2020-09-25] MEDS: PRIMIDONE 50 MG TAB PO SCH (08:42)
[2020-09-25] MEDS: IPRATROPIUM/ALBUTEROL 3 ML VIAL INH SCH ×2 (08:55→15:32)
[2020-09-25 13:41] VITALS: BP 136/71; TEMP 97.7; O2SAT 98
[2020-09-26] MEDS ORDERED: PANTOPRAZOLE SODIUM TAB 40 MG PO SCH (06:30)
--- NOTE | 2020-10-01 09:08 | DS ---
SUPERVISING PHYSICIAN: Jolanta Kessler MD ADMISSION DIAGNOSIS: 1. Acute bronchitis with possibly developing community acquired pneumonia secondary to rhinovirus with patient showing hypoxia on admission. 2. Community acquired pneumonia secondary to #1. 3. Essential tremors. DISCHARGE DIAGNOSIS: 1. Acute bronchitis secondary to upper respiratory viral infection with rhinovirus with secondary community acquired pneumonia. 2. Community acquired pneumonia secondary to #1. 3. Essential tremors. REASON FOR HOSPITALIZATION: Mr. Lara is a 70 year-old male patient with a past medical history of essential tremors. He reports secondary to having some progressive shortness of breath with a productive cough and some rhinorrhea. He woke up with this last night. He was tested for coronavirus, both rapid test and BioFire panel, some negative but positive for rhinovirus. He also noted he had been having some fever and chills. Vital signs in the Emergency Room showed oxygen saturation 88% on room air when he first got to the Emergency Room with respirations of 20, temperature 100.9, blood pressure 192/96. He was given a dose of Solu-Medrol, albuterol treatments, Rocephin, azithromycin and now is going to be admitted for acute bronchitis with concerns for developing pneumonia. His initial chest x-ray showed some mild infiltrates bilaterally. He was admitted in stable condition. LABORATORY: White count on admission was 12,600. At discharge, it was 9,900. Differential did initially have a left shift. Coagulation studies showed normal D-dimer. Fibrinogen was a little low at 479. Electrolytes on discharge were normal with creatinine 0.64. C-reactive protein was elevated at 8.3. Magnesium 2.0. Urinalysis within normal limits. MICROBIOLOGY: Sputum culture showed normal respiratory kristina. Blood cultures remained negative after 5 days. Respiratory panel was positive for human rhinovirus/enterovirus, negative for peoples and influenza and all other viral and bacterial targets. RADIOLOGY: Chest x-ray on discharge showed stable chest with upper normal heart with normal vasculature and bronchovascular markings. Question of stranding in left lung base and likely small bilateral pleural effusion. Please see those reports for details. HOSPITAL COURSE: Mr. Lara was admitted for treatment of upper respiratory infection secondary to rhinovirus as well as developing community acquired pneumonia. He was started on treatment with Rocephin and azithromycin and prednisone. He was given breathing treatments. He did show good clinical improvement. Labs were trending to baseline levels. On day of discharge, he was showing room saturations at 98% and was felt clinically stable enough to continue with outpatient management. Blood pressure at discharge was 136/71. He was for evaluation at 97.7 with pulse 58. PLAN: Mr. Lara was discharged on 09/25/20 with instructions to followup with Dr. Kessler on 09/30/20 at 9:30 AM. He was to resume his usual diet and increase activity as tolerated. He was given prescription for albuterol inhaler. He was to finish previous medications during hospitalization including the Medrol Dosepak and azithromycin. He was told to come to the ER or call Dr. Kessler's for any questions or any concerning symptoms. DISPOSITION: The patient was discharged home. CONDITION ON DISCHARGE: Stable and improved. #[id number] [facility]
== END 2020-09-25 14:42 | disposition home or self-care (01) | DRG 202 ==
LOC: ER 21:47 → MS 09-24 00:55 → OBSVTOIN 09-24 00:55
PROVIDERS: ADMIT Nurse Practitioner Acute Care; ATTEND Nurse Practitioner Family
DX: J20.6 Acute bronchitis due to rhinovirus (principal); J18.9 Pneumonia, unspecified organism; G25.0 Essential tremor; Z79.52 Long term (current) use of systemic steroids; Z79.899 Other long term (current) drug therapy